=== PATIENT | male | born 1970 | race Caucasian/White ===

== ENCOUNTER 2018-11-21 14:10 | Emergency (ER) | payer BC ==
--- NOTE | 2018-11-21 15:43 | CR ---
EXAMINATION: Right knee HISTORY: Pain COMPARISON: None TECHNIQUE: AP and lateral views FINDINGS: BKA changes are noted. The amputation margins of the fibula and tibia are irregular, however no comparisons are present to evaluate for erosions. There is moderate soft tissue swelling surrounding the tibial and fibular components. There is no fracture or acute osseous abnormality. No suprapatellar joint effusion. IMPRESSION: 1. Moderate soft tissue swelling surrounding the remaining tibia and fibula, status post BKA.
--- NOTE | 2018-11-21 16:21 | EDM.PDOC ---
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 Past medical history: As per history of present illness and as reviewed below otherwise noncontributory. Surgical history: As per history of present illness and as reviewed below otherwise noncontributory. Social history: No reported history of drug or alcohol abuse. Family history: As per history of present illness and as reviewed below otherwise noncontributory. Physical exam: HEENT: Atraumatic, normocephalic, pupils reactive, negative for conjunctival pallor or scleral icterus, mucous membranes moist, throat clear, neck supple, nontender, trachea midline. Lungs: Clear to auscultation, breath sounds equal bilaterally, chest nontender. Heart: S1S2, regular, negative for clicks, rubs, or JVD. Abdomen: Soft, nondistended, nontender. Negative for masses or hepatosplenomegaly. Negative for costovertebral tenderness. Pelvis: Stable nontender. Genitourinary: Deferred. Rectal: Deferred. Extremities: Atraumatic, negative for cords or calf pain. Neurovascular unremarkable. Right lower extremity as per history of present illness Neuro: Awake, alert, oriented. Cranial nerves II through XII unremarkable. Cerebellum unremarkable. Motor and sensory unremarkable throughout. Exam nonfocal. Diagnostics: [Distal right lower extremity x-ray no acute process per radiology ] Therapeutics: Elevation ice ibuprofen Keflex 500 by mouth twice a day #20 no refill Follow-up primary care in 2 weeks] sooner as needed Impression: [Contusion Swelling Lower extremity injury Post BKA remote past] Definitive disposition and diagnosis as appropriate pending reevaluation and review of above. Right Lower Leg Pain Score (Numeric/FACES): 5 - Related Data Allergies Allergy/AdvReac Type Severity Reaction Status Date / Time nickel Allergy Swelling Verified 11/21/18 14:50 metal Allergy Other Uncoded 11/21/18 14:50 Home Meds: Home Meds Lansoprazole [Prevacid] 1 tab PO DAILY 12/21/14 [History] Multivitamin [Multi-Vitamin Daily] 1 tab PO DAILY 12/21/14 [History] amLODIPine [Norvasc] 10 mg PO DAILY 10/13/15 [History] Aspirin 325 mg PO DAILY 07/24/16 [History] Hydrochlorothiazide 25 mg PO DAILY 07/24/16 [History] Losartan [Cozaar] 50 mg PO DAILY 07/24/16 [History] Levothyroxine 1 tab PO DAILY 11/21/18 [History] Past Medical History HEENT History: Reports: Hard of Hearing Cardiovascular History: Reports: Hypertension Respiratory History: Reports: None, Sleep Apnea Gastrointestinal History: Reports: GERD Other Gastrointestinal History: colitis Genitourinary History: Reports: Renal Calculus Musculoskeletal History: Reports: Amputation Other Neuro History: neurofibromatosis Endocrine/Metabolic History: Reports: Obesity/BMI 30+ Hematologic History: Reports: Blood Transfusion(s) Dermatologic History: Reports: Psoriasis - Infectious Disease History Infectious Disease History: Reports: Chicken Pox, Measles - Past Surgical History GI Surgical History: Reports: Appendectomy Male Surgical History: Reports: Kidney Stone Extraction Musculoskeletal Surgical History: Reports: ORIF, Other (See Below) Social & Family History - Family History Family Medical History: Noncontributory HEENT: Reports: None - Tobacco Use Smoking Status *Q: Never Smoker - Caffeine Use Caffeine Use: Reports: Coffee, Soda - Recreational Drug Use Recreational Drug Use: No - Living Situation & Occupation Living situation: Reports: Occupation: Employed Review of Systems - Review of Systems Review Of Systems: See Below ED EXAM, GENERAL - Physical Exam Exam: See Below Course - Vital Signs Last Recorded V/S: Last Vital Signs Temp 96.9 F 11/21/18 14:47 Pulse 100 11/21/18 14:47 Resp 18 11/21/18 14:47 BP 123/83 11/21/18 14:47 Pulse Ox 95 11/21/18 14:47 Departure - Departure Time of Disposition: 16:20 Disposition: Home, Self-Care 01 Condition: Good Clinical Impression: Injury of right lower extremity - Discharge Information Referrals: PCP,Unknown [Primary Care Provider] - Additional Instructions: Elevation ice ibuprofen Keflex 500 by mouth twice a day #20 no refill Follow-up primary care in 2 weeks] sooner as needed The following information is given to patients seen in the emergency department who are being discharged to home. This information is to outline your options for follow-up care. We provide all patients seen in our emergency department with a follow-up referral. The need for follow-up, as well as the timing and circumstances, are variable depending upon the specifics of your emergency department visit. If you don't have a primary care physician on staff, we will provide you with a referral. We always advise you to contact your personal physician following an emergency department visit to inform them of the circumstance of the visit and for follow-up with them and/or the need for any referrals to a consulting specialist. The emergency department will also refer you to a specialist when appropriate. This referral assures that you have the opportunity for follow-up care with a specialist. All of these measure are taken in an effort to provide you with optimal care, which includes your follow-up. Under all circumstances we always encourage you to contact your private physician who remains a resource for coordinating your care. When calling for follow-up care, please make the office aware that this follow-up is from your recent emergency room visit. If for any reason you are refused follow-up, please contact the [facility] emergency department at and asked to speak to the emergency department charge nurse.
[2018-11-21 16:41] VITALS: BP 129/81
== END 2018-11-21 16:41 | disposition home or self-care (01) ==
LOC: MW.ED 14:10
DX: T87.89 Other complications of amputation stump (principal); I10 Essential (primary) hypertension; K21.9 Gastro-esophageal reflux disease without esophagitis; Z91.09 Other allergy status, other than to drugs and biological substances; Z79.82 Long term (current) use of aspirin; Z79.899 Other long term (current) drug therapy; Z89.511 Acquired absence of right leg below knee; Z89.512 Acquired absence of left leg below knee
CPT/HCPCS: 73560-26-RT; 73560-RT; 99283; 99283-25

== ENCOUNTER 2019-08-10 14:19 | Emergency (ER) | payer BC ==
--- NOTE | 2019-08-10 14:55 | EDM.PDOC ---
ED HPI GENERAL MEDICAL PROBLEM - General Chief Complaint: Respiratory Problem Stated Complaint: COLD Time Seen by Provider: 08/10/19 14:51 Source of Information: Reports: Patient History Limitations: Reports: No Limitations - History of Present Illness INITIAL COMMENTS - FREE TEXT/NARRATIVE: HISTORY AND PHYSICAL: History of present illness: Patient is a 49 male who presents to the emergency room with concerns of cough and congestion 1 week. Patient denies any fever, chills, headache, change in vision, syncope or near syncope. Denies any chest pain, back pain, or shortness of breath. Denies any abdominal pain, nausea, vomiting, diarrhea, constipation or dysuria. Has not noted any blood in urine or stool. Patient has been eating and drinking appropriately. Review of systems: As per history of present illness and below otherwise all systems reviewed and negative. Past medical history: As per history of present illness and as reviewed below otherwise noncontributory. Surgical history: As per history of present illness and as reviewed below otherwise noncontributory. Social history: See social history for further information Family history: As per history of present illness and as reviewed below otherwise noncontributory. Physical exam: General: Well-developed and well-nourished 49-year-old male. Alert and oriented. Nontoxic appearing and in no acute distress. HEENT: Atraumatic, normocephalic, pupils equal and reactive bilaterally, negative for conjunctival pallor or scleral icterus, mucous membranes moist, TMs normal bilaterally, throat clear, neck supple, nontender, trachea midline. No drooling or trismus noted. No meningeal signs. No hot potato voice noted. Lungs: Fine expiratory wheezing posterior bases bilat - otherwise clear, breath sounds equal bilaterally, chest nontender. Dry nonproductive cough. Heart: S1S2, regular rate and rhythm without overt murmur Abdomen: Soft, obese, nontender. Skin: Intact, warm, dry. No lesions or rashes noted. Extremities: Atraumatic, moves all extremities per self without difficulty or deficits, negative for cords or calf pain. Neurovascular unremarkable. Neuro: Awake, alert, oriented. Cranial nerves II through XII unremarkable. Cerebellum unremarkable. Motor and sensory unremarkable throughout. Exam nonfocal. Notes: Diagnositics are unremarkable. Due to symptoms and longevity; will treat. Medication and supportive care measures were reviewed and discussed. Voices understanding and is agreeable to plan of care. Denies any further questions or concerns at this time. Diagnostics: Influenza, CXR Therapeutics: Pro-Air with Spacer Prescription: Zpak, Tessalone Jacqueline, Medrol Dosepak Impression: Bronchitis Plan: 1. Take medications as prescribed. Can use the Pro-Air inhaler with spacer 2 puffs every 4 hours PRN. 2. Follow up with your primary care provider as we discussed. 3. Return to the ED as needed as discussed. Definitive disposition and diagnosis as appropriate pending reevaluation and review of above. - Related Data Allergies Allergy/AdvReac Type Severity Reaction Status Date / Time nickel Allergy Swelling Verified 08/10/19 14:29 metal Allergy Other Uncoded 11/21/18 14:50 Home Meds: Home Meds Lansoprazole [Prevacid] 1 tab PO DAILY 12/21/14 [History] Multivitamin [Multi-Vitamin Daily] 1 tab PO DAILY 12/21/14 [History] amLODIPine [Norvasc] 10 mg PO DAILY 10/13/15 [History] Aspirin 325 mg PO DAILY 07/24/16 [History] Hydrochlorothiazide 25 mg PO DAILY 07/24/16 [History] Losartan [Cozaar] 50 mg PO DAILY 07/24/16 [History] Levothyroxine 1 tab PO DAILY 11/21/18 [History] Azithromycin [Zithromax] 1 dose PO DAILY 5 Days #6 tab 08/10/19 [Rx] methylPREDNISolone [Medrol] 1 dose PO DAILY 6 Days #1 dospk 08/10/19 [Rx] Past Medical History HEENT History: Reports: Hard of Hearing Cardiovascular History: Reports: Hypertension Respiratory History: Reports: None, Sleep Apnea Gastrointestinal History: Reports: GERD Other Gastrointestinal History: colitis Genitourinary History: Reports: Renal Calculus Musculoskeletal History: Reports: Amputation Other Neuro History: neurofibromatosis Endocrine/Metabolic History: Reports: Obesity/BMI 30+ Hematologic History: Reports: Blood Transfusion(s) Dermatologic History: Reports: Psoriasis - Infectious Disease History Infectious Disease History: Reports: Chicken Pox - Past Surgical History GI Surgical History: Reports: Appendectomy Male Surgical History: Reports: Kidney Stone Extraction Musculoskeletal Surgical History: Reports: ORIF, Other (See Below) Social & Family History - Family History Family Medical History: Noncontributory HEENT: Reports: None - Tobacco Use Smoking Status *Q: Never Smoker - Caffeine Use Caffeine Use: Reports: Coffee, Soda - Recreational Drug Use Recreational Drug Use: No - Living Situation & Occupation Living situation: Reports: Occupation: Employed ED ROS GENERAL - Review of Systems Review Of Systems: Comprehensive ROS is negative, except as noted in HPI. ED EXAM, GENERAL - Physical Exam Exam: See Below (See edictation) Course - Vital Signs Last Recorded V/S: Last Vital Signs Temp 97.7 F 08/10/19 14:25 Pulse 93 08/10/19 14:25 Resp 18 08/10/19 14:25 BP 146/77 H 08/10/19 14:25 Pulse Ox 95 08/10/19 14:25 - Orders/Labs/Meds Orders: Active Orders 24 hr Category Date Time Status Communication Order [RC] STAT Care 08/10/19 14:59 Active RT Post Treatment Assessment [RC] Click to Edit Care 08/10/19 14:58 Active RT Pre-Treatment Assessment [RC] Click to Edit Care 08/10/19 14:58 Active Meds: Medications Discontinued Medications Generic Name Dose Route Start Last Admin Trade Name Enrico PRN Reason Stop Dose Admin Albuterol 1 gm 08/10/19 14:58 Ventolin Hfa INH 08/10/19 14:59 ONETIME ONE Departure - Departure Time of Disposition: 15:04 Disposition: Home, Self-Care 01 Clinical Impression: Bronchitis - Discharge Information Prescriptions: Azithromycin [Zithromax] 1 dose PO DAILY 5 Days #6 tab methylPREDNISolone [Medrol] 1 dose PO DAILY 6 Days #1 dospk Referrals: Amish Padilla MD [Primary Care Provider] - Forms: ED Department Discharge Additional Instructions: The following information is given to patients seen in the emergency department who are being discharged to home. This information is to outline your options for follow-up care. We provide all patients seen in our emergency department with a follow-up referral. The need for follow-up, as well as the timing and circumstances, are variable depending upon the specifics of your emergency department visit. If you don't have a primary care physician on staff, we will provide you with a referral. We always advise you to contact your personal physician following an emergency department visit to inform them of the circumstance of the visit and for follow-up with them and/or the need for any referrals to a consulting specialist. The emergency department will also refer you to a specialist when appropriate. This referral assures that you have the opportunity for follow-up care with a specialist. All of these measure are taken in an effort to provide you with optimal care, which includes your follow-up. Under all circumstances we always encourage you to contact your private physician who remains a resource for coordinating your care. When calling for follow-up care, please make the office aware that this follow-up is from your recent emergency room visit. If for any reason you are refused follow-up, please contact the [facility] Emergency Department at and asked to speak to the emergency department charge nurse. [facility] [address] [place] [id number] [facility] [address] [place] [id number] 1. Take medications as prescribed. Can use the Pro-Air inhaler with spacer 2 puffs every 4 hours PRN. 2. Follow up with your primary care provider as we discussed. 3. Return to the ED as needed as discussed. Sepsis Event Note - Evaluation Sepsis Screening Result: No Definite Risk - Focused Exam Vital Signs: Vital Signs Temp Pulse Resp BP Pulse Ox 08/10/19 14:25 97.7 F 93 18 146/77 H 95 Date Exam was Performed: 08/10/19 Time Exam was Performed: 15:03 - My Orders Last 24 Hours: My Active Orders 08/10/19 14:58 RT Post Treatment Assessment [RC] Click to Edit RT Pre-Treatment Assessment [RC] Click to Edit 08/10/19 14:59 Communication Order [RC] STAT - Assessment/Plan Last 24 Hours: My Active Orders 08/10/19 14:58 RT Post Treatment Assessment [RC] Click to Edit RT Pre-Treatment Assessment [RC] Click to Edit 08/10/19 14:59 Communication Order [RC] STAT
[2019-08-10] MEDS ORDERED: Albuterol 8 GM Inhaler INH ONE (14:58)
--- NOTE | 2019-08-10 14:58 | CR ---
Chest: 2 views of the chest are obtained. Comparison: Prior chest CT study of 05/12/19, previous chest x-ray of 10/12/15. Heart size and mediastinum are normal. Lungs are clear with no acute parenchymal change. Bony structures appear within normal limits for the patient's age. Impression: 1. Nothing acute is appreciated on 2 view chest x-ray. Diagnostic code #1 This report was dictated in [place] Standard Time
[2019-08-10 15:42] VITALS: BP 137/78; PULSE 88
== END 2019-08-10 15:52 | disposition home or self-care (01) ==
LOC: MW.ED 14:19
DX: J40 Bronchitis, not specified as acute or chronic (principal); Z88.8 Allergy status to other drugs, medicaments and biological substances; Z91.048 Other nonmedicinal substance allergy status
CPT/HCPCS: 71046; 87804; 99284; A9270; 99283

== ENCOUNTER 2019-08-14 17:16 | Observation (INO) | payer BC ==
[2019-08-14] MEDS ORDERED: methylPREDNISolone Sodium Succinate 125 MG/2 ML SDV IVPUSH ONE (17:38)
[2019-08-14] MEDS ORDERED: Albuterol/Ipratropium 3.0-0.5 MG/3 ML Neb Soln NEB ONE (17:38)
[2019-08-14] MEDS ORDERED: Sodium Chloride 0.9% 2.5 ML Syringe FLUSH PRN (17:39)
[2019-08-14] MEDS ORDERED: Sodium Chloride 0.9% 10 ML Syringe FLUSH PRN (17:39)
--- NOTE | 2019-08-14 18:01 | EDM.PDOC ---
ED HPI GENERAL MEDICAL PROBLEM - General Chief Complaint: Respiratory Problem Stated Complaint: COUGH Time Seen by Provider: 08/14/19 17:30 Source of Information: Reports: Patient History Limitations: Reports: No Limitations - History of Present Illness INITIAL COMMENTS - FREE TEXT/NARRATIVE: HISTORY AND PHYSICAL: History of present illness: Patient is a 49-year-old male who presents to the emergency room with complaints of cough and shortness of breath. He was evaluated in our emergency room earlier this week with similar complaints. At that time he had chest x- ray and influenza swab which were negative. He was placed on Z-Gaston, Medrol Dosepak and given Tessalon Perles. He states his symptoms have not improved and he becomes "short of breath just walking down the bone. Patient denies any fever, chills, headache, change in vision, syncope or near syncope. Denies any chest pain, back pain, neck pain or stiffness. Denies any abdominal pain, nausea , vomiting, diarrhea, constipation or dysuria. Has not noted any blood in urine or stool. Patient has been eating and drinking appropriately. Review of systems: As per history of present illness and below otherwise all systems reviewed and negative. Past medical history: As per history of present illness and as reviewed below otherwise noncontributory. Surgical history: As per history of present illness and as reviewed below otherwise noncontributory. Social history: See social history for further information Family history: As per history of present illness and as reviewed below otherwise noncontributory. Physical exam: General: Well-developed and well-nourished 44-year-old male. Alert and oriented. Nontoxic-appearing and in no acute distress. HEENT: Atraumatic, normocephalic, pupils equal and reactive bilaterally, negative for conjunctival pallor or scleral icterus, mucous membranes moist, TMs normal bilaterally, throat clear, neck supple, nontender, trachea midline. No drooling or trismus noted. No meningeal signs. No hot potato voice noted. Lungs: Diminished throughout, breath sounds equal bilaterally, chest nontender. Loose harsh cough noted. Heart: S1S2, regular rate and rhythm without overt murmur Abdomen: Soft, nondistended, nontender. Negative for masses or hepatosplenomegaly. Negative for costovertebral tenderness. Pelvis: Stable nontender. Skin: Intact, warm, dry. No lesions or rashes noted. Extremities: Atraumatic, moves all extremities per self without difficulty or deficits, negative for cords or calf pain. Neurovascular unremarkable. Neuro: Awake, alert, oriented. Cranial nerves II through XII unremarkable. Cerebellum unremarkable. Motor and sensory unremarkable throughout. Exam nonfocal. Notes: Patient does have a leukocytosis. Negative d-dimer. Chest x-ray shows 1.2cm nodule within the left upper chest not definitively appreciated on chest CT that was done in May 2019 (recommend repeat CT). Emphysematous changes noted mild increased lung markings which are believed to be chronic. As the patient did fail outpatient oral antibiotics and nursing staff did walk with him in the hallway and his oxygen saturation was 86 to 88% on room air and he was symptomatic. Did offer him admission for further care and management. Dr. Menard was consulted and agreeable to admit patient for observation Diagnostics: CBC, CMP, BC x 2, CXR Therapeutics: Duo Neb, Solu-Medrol, Levaquin Impression: Hypoxia Leukocytosis Bronchitis Plan: Observation admission Definitive disposition and diagnosis as appropriate pending reevaluation and review of above. - Related Data Allergies Allergy/AdvReac Type Severity Reaction Status Date / Time nickel Allergy Severe Swelling Verified 08/14/19 21:11 metal Allergy Severe Other Uncoded 08/14/19 21:11 Home Meds: Home Meds Lansoprazole [Prevacid] 1 tab PO DAILY 12/21/14 [History] Multivitamin [Multi-Vitamin Daily] 1 tab PO DAILY 12/21/14 [History] amLODIPine [Norvasc] 10 mg PO DAILY 10/13/15 [History] Hydrochlorothiazide 25 mg PO DAILY 07/24/16 [History] Losartan [Cozaar] 50 mg PO DAILY 07/24/16 [History] Azithromycin [Zithromax] 1 dose PO DAILY 5 Days #6 tab 08/10/19 [Rx] Benzonatate [Tessalon Perle] 100 mg PO TID PRN #20 capsule 08/10/19 [Rx] methylPREDNISolone [Medrol] 1 dose PO DAILY 6 Days #1 dospk 08/10/19 [Rx] Aspirin [Halfprin] 81 mg PO DAILY 08/14/19 [History] Escitalopram [Lexapro] 20 mg PO DAILY 08/14/19 [History] Levothyroxine [Synthroid] 50 mcg PO ASDIRECTED 08/14/19 [History] Past Medical History HEENT History: Reports: Hard of Hearing Cardiovascular History: Reports: Hypertension Respiratory History: Reports: None, Sleep Apnea Gastrointestinal History: Reports: GERD Other Gastrointestinal History: colitis Genitourinary History: Reports: Renal Calculus Musculoskeletal History: Reports: Amputation Other Neuro History: neurofibromatosis Endocrine/Metabolic History: Reports: Obesity/BMI 30+ Hematologic History: Reports: Blood Transfusion(s) Dermatologic History: Reports: Psoriasis - Infectious Disease History Infectious Disease History: Reports: Chicken Pox - Past Surgical History GI Surgical History: Reports: Appendectomy Male Surgical History: Reports: Kidney Stone Extraction Musculoskeletal Surgical History: Reports: ORIF, Other (See Below) Social & Family History - Family History Family Medical History: Noncontributory HEENT: Reports: None - Tobacco Use Smoking Status *Q: Never Smoker Second Hand Smoke Exposure: No - Caffeine Use Caffeine Use: Reports: None - Recreational Drug Use Recreational Drug Use: No - Living Situation & Occupation Living situation: Reports: Occupation: Employed ED ROS GENERAL - Review of Systems Review Of Systems: Comprehensive ROS is negative, except as noted in HPI. ED EXAM, GENERAL - Physical Exam Exam: See Below (See dictation) Course - Vital Signs Last Recorded V/S: Last Vital Signs Temp 97.3 F 08/14/19 17:24 Pulse 87 08/14/19 17:24 Resp 18 08/14/19 17:24 BP 134/90 08/14/19 17:24 Pulse Ox 92 L 08/14/19 17:24 - Orders/Labs/Meds Orders: Active Orders 24 hr Category Date Time Status Patient Status [ADT] Stat ADT 08/14/19 19:01 Active Ambulate [RC] PER UNIT ROUTINE Care 08/14/19 19:30 Active Oxygen Therapy [RC] CONTINUOUS Care 08/14/19 19:30 Active Pulse Oximetry [RC] PRN Care 08/14/19 19:30 Active RT Aerosol Therapy [RC] ASDIRECTED Care 08/14/19 17:39 Active RT Aerosol Therapy [RC] ASDIRECTED Care 08/14/19 19:36 Active Vital Signs [RC] Q4H Care 08/14/19 19:30 Active BMP [BASIC METABOLIC PANEL,BMP] [CHEM] AM Lab 08/15/19 05:11 Ordered CBC WITH AUTO DIFF [HEME] AM Lab 08/15/19 05:11 Ordered CULTURE BLOOD [BC] Stat Lab 08/14/19 18:16 Received CULTURE BLOOD [BC] Stat Lab 08/14/19 18:25 Received MAGNESIUM [CHEM] AM Lab 08/15/19 05:11 Ordered PHOSPHORUS [CHEM] AM Lab 08/15/19 05:11 Ordered URINALYSIS W/MICROSCOPIC [UA W/MICROSCOPIC] [URIN] Stat Lab 08/14/19 19:48 Ordered Acetaminophen [Tylenol] Med 08/14/19 19:30 Active 650 mg PO Q4H PRN Albuterol/Ipratropium [DuoNeb 3.0-0.5 MG/3 ML] Med 08/14/19 20:00 Active 3 ml NEB Q4HRRT Levofloxacin/Dextrose 5%-Water [Levaquin in D5W 750 MG/ Med 08/15/19 09:00 Active 150 ML] 750 mg Premix Bag 1 bag IV Q24H Sodium Chloride 0.9% [Normal Saline] 1,000 ml Med 08/14/19 20:00 Active IV ASDIRECTED Sodium Chloride 0.9% [Saline Flush] Med 08/14/19 17:39 Active 10 ml FLUSH ASDIRECTED PRN Sodium Chloride 0.9% [Saline Flush] Med 08/14/19 17:39 Active 2.5 ml FLUSH ASDIRECTED PRN methylPREDNISolone Sod Succ [Solu-MEDROL] Med 08/15/19 09:00 Active 40 mg IVPUSH Q8H Blood Culture x2 Reflex Set [OM.PC] Stat Oth 08/14/19 17:39 Ordered Saline Lock Insert [OM.PC] Stat Oth 08/14/19 17:39 Ordered Medication Orders Acetaminophen (Tylenol) 650 mg PO Q4H PRN PRN Reason: analgesia/fever Albuterol/Ipratropium (Duoneb 3.0-0.5 Mg/3 Ml) 3 ml NEB Q4HRRT DOUGLAS Last Admin: 08/14/19 21:05 Dose: 3 ml Admin: 08/14/19 21:05 Dose: Aspirin (Aspirin) 325 mg PO DAILY DOUGLAS Guaifenesin/Dextromethorphan (Robitussin Dm) 10 ml PO Q6H PRN PRN Reason: Cough Levofloxacin/Dextrose 750 mg/ (Premix) 150 mls @ 100 mls/hr IV Q24H DOUGLAS Sodium Chloride (Normal Saline) 1,000 mls @ 100 mls/hr IV ASDIRECTED DOUGLAS Stop: 08/15/19 05:00 Levothyroxine Sodium (Levothyroxine) 25 mcg PO DAILY DOUGLAS Methylprednisolone Sodium Succinate (Solu-Medrol) 40 mg IVPUSH Q8H DOUGLAS Non-Formulary Medication (Lansoprazole [Prevacid]) 1 tab PO DAILY DOUGLAS Sodium Chloride (Saline Flush) 10 ml FLUSH ASDIRECTED PRN PRN Reason: Keep Vein Open Sodium Chloride (Saline Flush) 2.5 ml FLUSH ASDIRECTED PRN PRN Reason: Keep Vein Open Labs: Laboratory Tests 08/14/19 08/14/19 08/14/19 Range/Units 17:45 17:45 17:45 WBC 15.84 H (4.0-11.0) K/uL RBC 5.70 (4.50-5.90) M/uL Hgb 17.7 H (13.0-17.0) g/dL Hct 49.8 (38.0-50.0) % MCV 87.4 (80.0-98.0) fL MCH 31.1 (27.0-32.0) pg MCHC 35.5 (31.0-37.0) g/dL RDW Std Deviation 44.8 (28.0-62.0) fl RDW Coeff of Violet 14 (11.0-15.0) % Plt Count 221 (150-400) K/uL MPV 10.30 (7.40-12.00) fL Neut % (Auto) 79.8 (48.0-80.0) % Lymph % (Auto) 15.8 L (16.0-40.0) % [place] % (Auto) 3.4 (0.0-15.0) % Eos % (Auto) 0.6 (0.0-7.0) % Baso % (Auto) 0.4 (0.0-1.5) % Neut # (Auto) 12.6 H (1.4-5.7) K/uL Lymph # (Auto) 2.5 H (0.6-2.4) K/uL [place] # (Auto) 0.5 (0.0-0.8) K/uL Eos # (Auto) 0.1 (0.0-0.7) K/uL Baso # (Auto) 0.1 (0.0-0.1) K/uL Nucleated RBC % 0.0 /100WBC Nucleated RBCs # 0 K/uL D-Dimer, Quantitative 0.23 (0.0-0.50) mg/L FEU Lactate (0.20-2.00) mmol/L Sodium 140 (136-148) mmol/L Potassium 3.8 (3.5-5.1) mmol/L Chloride 102 (98-107) mmol/L Carbon Dioxide 24.3 (21.0-32.0) mmol/L BUN 29 H (7.0-18.0) mg/dL Creatinine 1.0 (0.8-1.3) mg/dL Est Cr Clr Drug Dosing 84.46 mL/min Estimated GFR (MDRD) > 60.0 ml/min Glucose 125 H (74-106) mg/dL Calcium 8.9 (8.5-10.1) mg/dL Total Bilirubin 0.4 (0.2-1.0) mg/dL AST 23 (15-37) IU/L ALT 59 (14-63) IU/L Alkaline Phosphatase 60 (46-116) U/L Troponin I (0.000-0.056) ng/mL Total Protein 7.3 (6.4-8.2) g/dL Albumin 3.9 (3.4-5.0) g/dL Globulin 3.4 (2.6-4.0) g/dL Albumin/Globulin Ratio 1.1 (0.9-1.6) 08/14/19 08/14/19 Range/Units 18:25 19:56 WBC (4.0-11.0) K/uL RBC (4.50-5.90) M/uL Hgb (13.0-17.0) g/dL Hct (38.0-50.0) % MCV (80.0-98.0) fL MCH (27.0-32.0) pg MCHC (31.0-37.0) g/dL RDW Std Deviation (28.0-62.0) fl RDW Coeff of Violet (11.0-15.0) % Plt Count (150-400) K/uL MPV (7.40-12.00) fL Neut % (Auto) (48.0-80.0) % Lymph % (Auto) (16.0-40.0) % [place] % (Auto) (0.0-15.0) % Eos % (Auto) (0.0-7.0) % Baso % (Auto) (0.0-1.5) % Neut # (Auto) (1.4-5.7) K/uL Lymph # (Auto) (0.6-2.4) K/uL [place] # (Auto) (0.0-0.8) K/uL Eos # (Auto) (0.0-0.7) K/uL Baso # (Auto) (0.0-0.1) K/uL Nucleated RBC % /100WBC Nucleated RBCs # K/uL D-Dimer, Quantitative (0.0-0.50) mg/L FEU Lactate 2.0 (0.20-2.00) mmol/L Sodium (136-148) mmol/L Potassium (3.5-5.1) mmol/L Chloride (98-107) mmol/L Carbon Dioxide (21.0-32.0) mmol/L BUN (7.0-18.0) mg/dL Creatinine (0.8-1.3) mg/dL Est Cr Clr Drug Dosing mL/min Estimated GFR (MDRD) ml/min Glucose (74-106) mg/dL Calcium (8.5-10.1) mg/dL Total Bilirubin (0.2-1.0) mg/dL AST (15-37) IU/L ALT (14-63) IU/L Alkaline Phosphatase (46-116) U/L Troponin I < 0.050 (0.000-0.056) ng/mL Total Protein (6.4-8.2) g/dL Albumin (3.4-5.0) g/dL Globulin (2.6-4.0) g/dL Albumin/Globulin Ratio (0.9-1.6) Meds: Medications Generic Name Dose Route Start Last Admin Trade Name Freq PRN Reason Stop Dose Admin Acetaminophen 650 mg 08/14/19 19:30 Tylenol PO Q4H PRN analgesia/fever Albuterol/Ipratropium 3 ml 08/14/19 20:00 08/14/19 21:05 Duoneb 3.0-0.5 Mg/3 Ml NEB 3 ml Q4HRRT DOUGLAS Administration Aspirin 325 mg 08/15/19 09:00 Aspirin PO DAILY DOUGLAS Guaifenesin/Dextromethorphan 10 ml 08/14/19 19:58 Robitussin Dm PO Q6H PRN Cough Levofloxacin/Dextrose 750 mg/ 150 mls @ 100 mls/hr 08/15/19 09:00 Premix IV Q24H DOUGLAS Sodium Chloride 1,000 mls @ 100 mls/hr 08/14/19 20:00 Normal Saline IV 08/15/19 05:00 ASDIRECTED [facility] Levothyroxine Sodium 25 mcg 08/15/19 09:00 Levothyroxine PO DAILY [facility] Methylprednisolone Sodium Succinate 40 mg 08/15/19 09:00 Solu-Medrol IVPUSH Q8H [facility] Non-Formulary Medication 1 tab 08/15/19 09:00 Lansoprazole [Prevacid] PO DAILY [facility] Sodium Chloride 10 ml 08/14/19 17:39 Saline Flush FLUSH ASDIRECTED PRN Keep Vein Open Sodium Chloride 2.5 ml 08/14/19 17:39 Saline Flush FLUSH ASDIRECTED PRN Keep Vein Open Discontinued Medications Generic Name Dose Route Start Last Admin Trade Name Freq PRN Reason Stop Dose Admin Albuterol/Ipratropium 3 ml 08/14/19 17:38 08/14/19 17:49 Duoneb 3.0-0.5 Mg/3 Ml NEB 08/14/19 17:39 3 ml ONETIME ONE Administration Albuterol/Ipratropium 3 ml 08/14/19 19:36 Duoneb 3.0-0.5 Mg/3 Ml NEB Q4HRRT PRN Shortness of Breath Levofloxacin/Dextrose 750 mg/ 150 mls @ 100 mls/hr 08/14/19 19:01 08/14/19 20 :03 Premix IV 08/14/19 20:30 100 mls/hr ONETIME ONE Administration Methylprednisolone Sodium Succinate 125 mg 08/14/19 17:38 08/14/19 17:53 Solu-Medrol IVPUSH 08/14/19 17:39 125 mg ONETIME ONE Administration Departure - Departure Time of Disposition: 19:05 Disposition: Refer to Observation Clinical Impression: Hypoxia, Bronchitis Leukocytosis Qualifiers: Leukocytosis type: unspecified Qualified Code(s): D72.829 - Elevated white blood cell count, unspecified - Discharge Information Sepsis Event Note - Evaluation Sepsis Screening Result: No Definite Risk - Focused Exam Vital Signs: Vital Signs Temp Pulse Resp BP Pulse Ox 08/14/19 17:24 97.3 F 87 18 134/90 92 L Date Exam was Performed: 08/14/19 Time Exam was Performed: 21:26 - My Orders Last 24 Hours: My Active Orders 08/14/19 17:39 RT Aerosol Therapy [RC] ASDIRECTED Sodium Chloride 0.9% [Saline Flush] 10 ml FLUSH ASDIRECTED PRN Sodium Chloride 0.9% [Saline Flush] 2.5 ml FLUSH ASDIRECTED PRN Blood Culture x2 Reflex Set [OM.PC] Stat Saline Lock Insert [OM.PC] Stat 08/14/19 18:16 CULTURE BLOOD [BC] Stat 08/14/19 18:25 CULTURE BLOOD [BC] Stat 08/14/19 19:01 Patient Status [ADT] Stat - Assessment/Plan Last 24 Hours: My Active Orders 08/14/19 17:39 RT Aerosol Therapy [RC] ASDIRECTED Sodium Chloride 0.9% [Saline Flush] 10 ml FLUSH ASDIRECTED PRN Sodium Chloride 0.9% [Saline Flush] 2.5 ml FLUSH ASDIRECTED PRN Blood Culture x2 Reflex Set [OM.PC] Stat Saline Lock Insert [OM.PC] Stat 08/14/19 18:16 CULTURE BLOOD [BC] Stat 08/14/19 18:25 CULTURE BLOOD [BC] Stat 08/14/19 19:01 Patient Status [ADT] Stat
[2019-08-14 18:28] LABS: BLOOD UREA NITROGEN,BUN 29 mg/dL (7.0-18.0); CARBON DIOXIDE,CO2 24.3 mmol/L (21.0-32.0); CHLORIDE,CL 102 mmol/L (98-107); GLUCOSE RANDOM 125 mg/dL (74-106); POTASSIUM,K 3.8 mmol/L (3.5-5.1); SODIUM,NA 140 mmol/L (136-148)
--- NOTE | 2019-08-14 18:30 | CR ---
Chest: 2 views of the chest were obtained. Comparison: Prior chest x-ray 08/10/[address] study of 05/12/19. Heart size and mediastinum are within normal limits. Surgical clips are noted within the right axillary region. Nodule is identified on the current study within the left upper chest measuring 1.2 cm. This finding is not definitely appreciated on chest CT study of 05/12/19. Lungs otherwise are clear with no acute parenchymal change. Lung markings are slightly increased which are believed to be chronic. Diaphragms are flattened on the lateral view compatible with emphysematous change. Mild disc space narrowing is scattered within the spine. Impression: 1. 1.2 cm nodule within the left upper chest not definitely appreciated on chest CT of 05/12/19. Recommend repeat noncontrast chest CT study to further evaluate. 2. Emphysematous change. 3. Mild increased lung markings which are believed to be chronic. Nothing acute is otherwise seen. Diagnostic code #9 This report was dictated in [place] Standard Time
[2019-08-14] MEDS ORDERED: Levofloxacin/Dextrose 5%-Water 750 MG in Premix Bag 1 BAG IV ONE (19:01)
[2019-08-14] MEDS ORDERED: Acetaminophen 325 MG Tab PO PRN (19:30)
[2019-08-14] MEDS ORDERED: Albuterol/Ipratropium 3.0-0.5 MG/3 ML Neb Soln NEB PRN ×2 (19:36→23:52)
--- NOTE | 2019-08-14 19:40 | CT ---
CT chest Technique: Multiple axial sections were obtained from above the lung apices inferiorly through the lung bases. Intravenous contrast was not utilized. Comparison: Previous chest x-ray performed on the same day (6:02 PM). Prior chest CT study of 05/12/19 is also available. Findings: Visualized upper abdominal structures show nothing acute. No pericardial thickening is seen. Aorta shows no aneurysm. Small lymph nodes are seen within the mediastinum believed to be normal. No axillary adenopathy is seen. Lymph node within the right axillary region appears calcified. Calcification is seen within the thyroid gland which is believed to be incidental. Lungs show no acute parenchymal change. No parenchymal nodule is seen. Skin lesions are seen one of which likely correlate to the nodule on chest x-ray. Bone window settings shows no acute osseous finding. Impression: 1. No pulmonary nodule is seen. No acute parenchymal change is appreciated. 2. Multiple skin lesions are noted. One of these skin lesions likely causes the nodule on the chest x-ray. 3. Other findings which are believed to be incidental as described above. Diagnostic code #2 This report was dictated in [place] Standard Time
[2019-08-14] MEDS ORDERED: guaiFENesin/Dextromethorphan 100-10 MG/5 ML Soln 10 ML Cup PO PRN (19:58)
[2019-08-14] MEDS ORDERED: Sodium Chloride 0.9% 1,000 ML IV SCH (20:00)
[2019-08-14] MEDS: Albuterol/Ipratropium 3.0-0.5 MG/3 ML Neb Soln NEB SCH ×2 (21:05)
--- NOTE | 2019-08-14 21:12 | PCM.HP.2 ---
H&P History of Present Illness - General Date of Service: 08/14/19 Admit Problem/Dx: Admission Diagnosis/Problem Admission Diagnosis/Problem Hypoxia Source of Information: Patient - History of Present Illness Initial Comments - Free Text/Narative: Patient is a 49-year-old male with PMH of HTN, sleep apnea, right BKA, who presents to the emergency room with complaints of cough and shortness of breath for past 1 week. Patient was evaluated in emergency room earlier this week with similar complaints. Chest x-ray and influenza swab during that visit were negative. Patient was discharged on Z-Gaston, steroids and Tessalon Perles. Patient states that his SOB is worse with exertion. Patient denies any fever, chills, headache, change in vision, syncope or near syncope, chest pain, neck pain or stiffness. Denies any abdominal pain, nausea, vomiting, diarrhea, constipation or dysuria, hematuria. In the ER patient was hypoxic in high 80s upon ambulation. CXR was obtained which showed a emphysematous changes and pulmonary nodule, subsequent CT showed no nodule, PE or consolidation. Patient was admitted for management of possible COPD/Bronchitis management. Patienr denied any smoking history. Onset of Symptoms: Reports: Gradual Duration of Symptoms: Reports: Day(s): - Related Data Allergies/Adverse Reactions: Allergies Allergy/AdvReac Type Severity Reaction Status Date / Time nickel Allergy Severe Swelling Verified 08/14/19 21:11 metal Allergy Severe Other Uncoded 08/14/19 21:11 Home Medications: Home Meds Lansoprazole [Prevacid] 1 tab PO DAILY 12/21/14 [History] Multivitamin [Multi-Vitamin Daily] 1 tab PO DAILY 12/21/14 [History] amLODIPine [Norvasc] 10 mg PO DAILY 10/13/15 [History] Hydrochlorothiazide 25 mg PO DAILY 07/24/16 [History] Losartan [Cozaar] 50 mg PO DAILY 07/24/16 [History] Azithromycin [Zithromax] 1 dose PO DAILY 5 Days #6 tab 08/10/19 [Rx] methylPREDNISolone [Medrol] 1 dose PO DAILY 6 Days #1 dospk 08/10/19 [Rx] Aspirin [Halfprin] 81 mg PO DAILY 08/14/19 [History] Escitalopram [Lexapro] 20 mg PO DAILY 08/14/19 [History] Levothyroxine [Synthroid] 50 mcg PO ASDIRECTED 08/14/19 [History] Past Medical History HEENT History: Reports: Hard of Hearing Cardiovascular History: Reports: Hypertension Respiratory History: Reports: None, Sleep Apnea Gastrointestinal History: Reports: GERD Other Gastrointestinal History: colitis Genitourinary History: Reports: Renal Calculus Musculoskeletal History: Reports: Amputation Other Neuro History: neurofibromatosis Endocrine/Metabolic History: Reports: Obesity/BMI 30+ Hematologic History: Reports: Blood Transfusion(s) Dermatologic History: Reports: Psoriasis - Infectious Disease History Infectious Disease History: Reports: Chicken Pox - Past Surgical History GI Surgical History: Reports: Appendectomy Male Surgical History: Reports: Kidney Stone Extraction Musculoskeletal Surgical History: Reports: ORIF, Other (See Below) Social & Family History - Family History Family Medical History: Noncontributory HEENT: Reports: None - Tobacco Use Smoking Status *Q: Never Smoker Second Hand Smoke Exposure: No - Caffeine Use Caffeine Use: Reports: None - Recreational Drug Use Recreational Drug Use: No - Living Situation & Occupation Living situation: Reports: Occupation: Employed H&P Review of Systems - Review of Systems: General: Reports: Malaise, Weakness, Fatigue, Decreased Appetite HEENT: Reports: Sore Throat. Denies: Glasses, Headaches, Hearing Changes, Vertigo Pulmonary: Reports: Shortness of Breath, Cough, Sputum. Denies: Pleuritic Chest Pain, Hemoptysis Cardiovascular: Reports: Dyspnea on Exertion. Denies: Chest Pain, Palpitations , Orthopnea, Edema, Lightheadedness Gastrointestinal: Denies: Abdominal Pain, Anorexia, Black Stool, Bloody Stool, Vomiting Genitourinary: Denies: Burning, Pain, Urgency Musculoskeletal: Denies: Shoulder Pain, Arm Pain, Back Pain Skin: Denies: Jaundice, Pallor, Diaphoresis Psychiatric: Denies: Confusion, Depression, Mood Lability Neurological: Denies: Confusion, Dizziness, Numbness, Paresthesia, Pre-Existing Deficit, Seizure Hematologic/Lymphatic: Denies: Easy Bleeding, Easy Bruising, Swollen Glands Exam - Vital Signs Vital Signs: Last Vital Signs Temp 36.3 C 08/14/19 17:24 Pulse 87 08/14/19 17:24 Resp 18 08/14/19 17:24 BP 134/90 08/14/19 17:24 Pulse Ox 92 L 08/14/19 17:24 Weight: 113.398 kg - Exam General: Alert, Oriented, Cooperative, Moderate Distress HEENT: Conjunctiva Clear Neck: Trachea Midline. No: Supple Lungs: Decreased Breath Sounds, Rhonchi Cardiovascular: Normal S1, Normal S2 GI/Abdominal Exam: Normal Bowel Sounds, Soft, Non-Tender Peripheral Pulses: 3+: Dorsalis Pedis (L), Dorsalis Pedis (R) Skin: Dry Psychiatric: Alert, Normal Affect, Normal Mood - Patient Data Lab Results Last 24 hrs: Laboratory Results - last 24 hr 08/14/19 08/14/19 08/14/19 Range/Units 17:45 17:45 17:45 WBC 15.84 H (4.0-11.0) K/uL RBC 5.70 (4.50-5.90) M/uL Hgb 17.7 H (13.0-17.0) g/dL Hct 49.8 (38.0-50.0) % MCV 87.4 (80.0-98.0) fL MCH 31.1 (27.0-32.0) pg MCHC 35.5 (31.0-37.0) g/dL RDW Std Deviation 44.8 (28.0-62.0) fl RDW Coeff of Violet 14 (11.0-15.0) % Plt Count 221 (150-400) K/uL MPV 10.30 (7.40-12.00) fL Neut % (Auto) 79.8 (48.0-80.0) % Lymph % (Auto) 15.8 L (16.0-40.0) % [place] % (Auto) 3.4 (0.0-15.0) % Eos % (Auto) 0.6 (0.0-7.0) % Baso % (Auto) 0.4 (0.0-1.5) % Neut # (Auto) 12.6 H (1.4-5.7) K/uL Lymph # (Auto) 2.5 H (0.6-2.4) K/uL [place] # (Auto) 0.5 (0.0-0.8) K/uL Eos # (Auto) 0.1 (0.0-0.7) K/uL Baso # (Auto) 0.1 (0.0-0.1) K/uL Nucleated RBC % 0.0 /100WBC Nucleated RBCs # 0 K/uL D-Dimer, Quantitative 0.23 (0.0-0.50) mg/L FEU Lactate (0.20-2.00) mmol/L Sodium 140 (136-148) mmol/L Potassium 3.8 (3.5-5.1) mmol/L Chloride 102 (98-107) mmol/L Carbon Dioxide 24.3 (21.0-32.0) mmol/L BUN 29 H (7.0-18.0) mg/dL Creatinine 1.0 (0.8-1.3) mg/dL Est Cr Clr Drug Dosing 84.46 mL/min Estimated GFR (MDRD) > 60.0 ml/min Glucose 125 H (74-106) mg/dL Calcium 8.9 (8.5-10.1) mg/dL Total Bilirubin 0.4 (0.2-1.0) mg/dL AST 23 (15-37) IU/L ALT 59 (14-63) IU/L Alkaline Phosphatase 60 (46-116) U/L Troponin I (0.000-0.056) ng/mL Total Protein 7.3 (6.4-8.2) g/dL Albumin 3.9 (3.4-5.0) g/dL Globulin 3.4 (2.6-4.0) g/dL Albumin/Globulin Ratio 1.1 (0.9-1.6) 08/14/19 08/14/19 Range/Units 18:25 19:56 WBC (4.0-11.0) K/uL RBC (4.50-5.90) M/uL Hgb (13.0-17.0) g/dL Hct (38.0-50.0) % MCV (80.0-98.0) fL MCH (27.0-32.0) pg MCHC (31.0-37.0) g/dL RDW Std Deviation (28.0-62.0) fl RDW Coeff of Violet (11.0-15.0) % Plt Count (150-400) K/uL MPV (7.40-12.00) fL Neut % (Auto) (48.0-80.0) % Lymph % (Auto) (16.0-40.0) % [place] % (Auto) (0.0-15.0) % Eos % (Auto) (0.0-7.0) % Baso % (Auto) (0.0-1.5) % Neut # (Auto) (1.4-5.7) K/uL Lymph # (Auto) (0.6-2.4) K/uL [place] # (Auto) (0.0-0.8) K/uL Eos # (Auto) (0.0-0.7) K/uL Baso # (Auto) (0.0-0.1) K/uL Nucleated RBC % /100WBC Nucleated RBCs # K/uL D-Dimer, Quantitative (0.0-0.50) mg/L FEU Lactate 2.0 (0.20-2.00) mmol/L Sodium (136-148) mmol/L Potassium (3.5-5.1) mmol/L Chloride (98-107) mmol/L Carbon Dioxide (21.0-32.0) mmol/L BUN (7.0-18.0) mg/dL Creatinine (0.8-1.3) mg/dL Est Cr Clr Drug Dosing mL/min Estimated GFR (MDRD) ml/min Glucose (74-106) mg/dL Calcium (8.5-10.1) mg/dL Total Bilirubin (0.2-1.0) mg/dL AST (15-37) IU/L ALT (14-63) IU/L Alkaline Phosphatase (46-116) U/L Troponin I < 0.050 (0.000-0.056) ng/mL Total Protein (6.4-8.2) g/dL Albumin (3.4-5.0) g/dL Globulin (2.6-4.0) g/dL Albumin/Globulin Ratio (0.9-1.6) Result Diagrams: 08/14/19 17:45 08/14/19 17:45 Sepsis Event Note - Evaluation Sepsis Screening Result: No Definite Risk - Focused Exam Vital Signs: Vital Signs Temp Pulse Resp BP Pulse Ox 08/14/19 17:24 36.3 C 87 18 134/90 92 L Date Exam was Performed: 08/14/19 Time Exam was Performed: 23:53 - Problem List (1) Bronchitis SNOMED Code(s): 90044835 ICD Code: J40 - BRONCHITIS, NOT SPECIFIED ACUTE OR CHRONIC Status: Acute Current Visit: Yes (2) Hypoxia SNOMED Code(s): 529344761 ICD Code: R09.02 - HYPOXEMIA Status: Acute Current Visit: Yes (3) Leukocytosis SNOMED Code(s): 049629257, 164307605 ICD Code: D72.829 - ELEVATED WHITE BLOOD CELL COUNT, UNSPECIFIED Status: Acute Current Visit: Yes Qualifiers: Leukocytosis type: unspecified Qualified Code(s): D72.829 - Elevated white blood cell count, unspecified Problem List Initiated/Reviewed/Updated: Yes Orders Last 24hrs: Active Orders 24 hr Category Date Time Status Patient Status [ADT] Stat ADT 08/14/19 19:01 Active Ambulate [RC] PER UNIT ROUTINE Care 08/14/19 19:30 Active Oxygen Therapy [RC] CONTINUOUS Care 08/14/19 19:30 Active Pulse Oximetry [RC] PRN Care 08/14/19 19:30 Active RT Aerosol Therapy [RC] ASDIRECTED Care 08/14/19 17:39 Active RT Aerosol Therapy [RC] ASDIRECTED Care 08/14/19 19:36 Active Vital Signs [RC] Q4H Care 08/14/19 19:30 Active BMP [BASIC METABOLIC PANEL,BMP] [CHEM] AM Lab 08/15/19 05:11 Ordered CBC WITH AUTO DIFF [HEME] AM Lab 08/15/19 05:11 Ordered CULTURE BLOOD [BC] Stat Lab 08/14/19 18:16 Received CULTURE BLOOD [BC] Stat Lab 08/14/19 18:25 Received MAGNESIUM [CHEM] AM Lab 08/15/19 05:11 Ordered PHOSPHORUS [CHEM] AM Lab 08/15/19 05:11 Ordered URINALYSIS W/MICROSCOPIC [UA W/MICROSCOPIC] [URIN] Stat Lab 08/14/19 19:48 Ordered Acetaminophen [Tylenol] Med 08/14/19 19:30 Active 650 mg PO Q4H PRN Albuterol/Ipratropium [DuoNeb 3.0-0.5 MG/3 ML] Med 08/14/19 20:00 Active 3 ml NEB Q4HRRT Aspirin Med 08/15/19 09:00 Active 325 mg PO DAILY Dextromethorphan/guaiFENesin [Robitussin DM] Med 08/14/19 19:58 Active 10 ml PO Q6H PRN Lansoprazole [Prevacid] Med 08/15/19 09:00 Active 1 tab PO DAILY Levofloxacin/Dextrose 5%-Water [Levaquin in D5W 750 MG/ Med 08/15/19 09:00 Active 150 ML] 750 mg Premix Bag 1 bag IV Q24H Levothyroxine Med 08/15/19 09:00 Active 25 mcg PO DAILY Sodium Chloride 0.9% [Normal Saline] 1,000 ml Med 08/14/19 20:00 Active IV ASDIRECTED Sodium Chloride 0.9% [Saline Flush] Med 08/14/19 17:39 Active 10 ml FLUSH ASDIRECTED PRN Sodium Chloride 0.9% [Saline Flush] Med 08/14/19 17:39 Active 2.5 ml FLUSH ASDIRECTED PRN methylPREDNISolone Sod Succ [Solu-MEDROL] Med 08/15/19 09:00 Active 40 mg IVPUSH Q8H Blood Culture x2 Reflex Set [OM.PC] Stat Oth 08/14/19 17:39 Ordered Saline Lock Insert [OM.PC] Stat Oth 08/14/19 17:39 Ordered Medication Orders Acetaminophen (Tylenol) 650 mg PO Q4H PRN PRN Reason: analgesia/fever Albuterol/Ipratropium (Duoneb 3.0-0.5 Mg/3 Ml) 3 ml NEB Q4HRRT [facility] Last Admin: 08/14/19 21:05 Dose: 3 ml Admin: 08/14/19 21:05 Dose: Aspirin (Aspirin) 325 mg PO DAILY [facility] Guaifenesin/Dextromethorphan (Robitussin Dm) 10 ml PO Q6H PRN PRN Reason: Cough Levofloxacin/Dextrose 750 mg/ (Premix) 150 mls @ 100 mls/hr IV Q24H [facility] Sodium Chloride (Normal Saline) 1,000 mls @ 100 mls/hr IV ASDIRECTED [facility] Stop: 08/15/19 05:00 Levothyroxine Sodium (Levothyroxine) 25 mcg PO DAILY [facility] Methylprednisolone Sodium Succinate (Solu-Medrol) 40 mg IVPUSH Q8H [facility] Non-Formulary Medication (Lansoprazole [Prevacid]) 1 tab PO DAILY [facility] Sodium Chloride (Saline Flush) 10 ml FLUSH ASDIRECTED PRN PRN Reason: Keep Vein Open Sodium Chloride (Saline Flush) 2.5 ml FLUSH ASDIRECTED PRN PRN Reason: Keep Vein Open Assessment/Plan Comment:: A/P: Patient is 49 y/o M comes in for evaluation of SOB CT chest ruled out PE, PNA Troponin negative, EKG unremarkable Admitted for possible COPD exacerbation / Bronchitis cont IV Levaquin for now Start DuoNeb start IV steroids Start slow hydration with NS Resume home meds as appropriate for HTN
[2019-08-15 06:31] LABS: CARBON DIOXIDE,CO2 23.4 mmol/L (21.0-32.0); CHLORIDE,CL 104 mmol/L (98-107); GLUCOSE RANDOM 136 mg/dL (74-106); POTASSIUM,K 4.3 mmol/L (3.5-5.1); SODIUM,NA 139 mmol/L (136-148)
[2019-08-15 06:54] LABS: BLOOD UREA NITROGEN,BUN 29 mg/dL (7.0-18.0)
[2019-08-15] MEDS ORDERED: Omeprazole 20 MG Cap.CR PO SCH (07:45)
[2019-08-15] MEDS ORDERED: Levothyroxine 25 MCG Tab PO SCH (07:45)
[2019-08-15] MEDS ORDERED: Aspirin 325 MG Tab.EC PO SCH (09:00)
[2019-08-15] MEDS ORDERED: FLU Vacc QS2019-20(6MOS+)/PF 60 MCG/0.5 ML SYRINGE IM ONE (09:00)
[2019-08-15] MEDS ORDERED: methylPREDNISolone Sodium Succinate 40 MG/1 ML SDV IVPUSH SCH (09:00)
[2019-08-15] MEDS ORDERED: Levofloxacin/Dextrose 5%-Water 750 MG in Premix Bag 1 BAG IV SCH (09:00)
[2019-08-15] MEDS ORDERED: Losartan 50 MG Tab PO SCH (11:00)
[2019-08-15] MEDS ORDERED: Aspirin 81 MG Tab.EC PO SCH (11:00)
[2019-08-15] MEDS ORDERED: amLODIPine 5 MG Tab PO SCH (11:00)
[2019-08-15] MEDS ORDERED: Levothyroxine 50 MCG Tab PO SCH (11:00)
[2019-08-15] MEDS ORDERED: Escitalopram 10 MG Tab PO SCH (11:00)
--- NOTE | 2019-08-15 12:02 | PCM.DCSUM1 ---
Discharge Summary - Hospital Course Free Text/Narrative:: Discharge summary Consultations: None Procedures: None Hospital course: Patient is a 49-year-old male with a significant past medical history of hypertension, sleep apnea, right BKA and neurofibromatosis presented with cough and shortness of breath beginning 7 days prior. Chest x-ray and influenza swab are negative. Patient was having increasing shortness of breath with exertion. Patient had recently presented to the ED a couple days prior and was given Z- Gaston steroids and Tessalon Perles; mentions did not help. Patient was managed with Levaquin duo nebs and IV steroids inpatient. Troponin was negative. EKG was negative CT chest rule out pneumonia and PE. Following day was recommended that patient have outpatient PFTs; prescription was written. Concerns about dyspnea on exertion; stress test was also ordered in outpatient setting. Patient was stable. Concnerns about asthma discussed w. patient. Advised to follow-up in outpatient setting with primary care. Discharge condition:Stable Disposition: Home Follow-up: PCP - Discharge Data Discharge Date: 08/15/19 Discharge Disposition: Home, Self-Care 01 Condition: Good - Referral to Home Health Primary Care Physician: Amish Padilla MD - Patient Instructions Diet: Heart Healthy Diet Notify Provider of: Fever, Increased Pain - Discharge Plan Prescriptions/Med Rec: Albuterol/Ipratropium [Combivent Respimat] 4 gm IH Q4H 14 Days #1 aer.w.adap Levofloxacin [Levaquin] 750 mg PO DAILY 5 Days #5 tablet Home Medications: Home Meds Lansoprazole [Prevacid] 1 tab PO DAILY 12/21/14 [History] Multivitamin [Multi-Vitamin Daily] 1 tab PO DAILY 12/21/14 [History] amLODIPine [Norvasc] 10 mg PO DAILY 10/13/15 [History] Hydrochlorothiazide 25 mg PO DAILY 07/24/16 [History] Losartan [Cozaar] 50 mg PO DAILY 07/24/16 [History] methylPREDNISolone [Medrol Dose Pack] 1 dose PO DAILY 6 Days #1 dospk 08/10/19 [ Rx] Aspirin [Halfprin] 81 mg PO DAILY 08/14/19 [History] Escitalopram [Lexapro] 20 mg PO DAILY 08/14/19 [History] Levothyroxine [Synthroid] 50 mcg PO ASDIRECTED 08/14/19 [History] Albuterol/Ipratropium [Combivent Respimat] 4 gm IH Q4H 14 Days #1 aer.w.adap 02/25 [Rx] Levofloxacin [Levaquin] 750 mg PO DAILY 5 Days #5 tablet 08/15/19 [Rx] Patient Handouts: Hypoxia, Albuterol; Ipratropium respiratory inhalation spray (Combivent Respimat), Leukocytosis, Levofloxacin tablets Referrals: Amish Padilla MD [Primary Care Provider] - 08/30/19 10:30 am Nelson Damon MD [Consulting Physician] - (The pulmonology clinic will call you with your appointment.) - Discharge Summary/Plan Comment DC Time >30 min.: No - Patient Data Vitals - Most Recent: Last Vital Signs Temp 97.2 F 08/15/19 04:00 Pulse 76 08/15/19 04:00 Resp 20 08/15/19 04:00 BP 134/71 08/15/19 04:00 Pulse Ox 94 L 08/15/19 04:00 Weight - Most Recent: 250 lb I&O - Last 24 hours: Intake & Output 08/14/19 08/15/19 08/15/19 22:59 06:59 14:59 Intake Total 1746 Output Total 350 Balance 1396 Lab Results - Last 24 hrs: Laboratory Results - last 24 hr 08/14/19 08/14/19 08/14/19 Range/Units 17:45 17:45 17:45 WBC 15.84 H (4.0-11.0) K/uL RBC 5.70 (4.50-5.90) M/uL Hgb 17.7 H (13.0-17.0) g/dL Hct 49.8 (38.0-50.0) % MCV 87.4 (80.0-98.0) fL MCH 31.1 (27.0-32.0) pg MCHC 35.5 (31.0-37.0) g/dL RDW Std Deviation 44.8 (28.0-62.0) fl RDW Coeff of Violet 14 (11.0-15.0) % Plt Count 221 (150-400) K/uL MPV 10.30 (7.40-12.00) fL Neut % (Auto) 79.8 (48.0-80.0) % Lymph % (Auto) 15.8 L (16.0-40.0) % [place] % (Auto) 3.4 (0.0-15.0) % Eos % (Auto) 0.6 (0.0-7.0) % Baso % (Auto) 0.4 (0.0-1.5) % Neut # (Auto) 12.6 H (1.4-5.7) K/uL Lymph # (Auto) 2.5 H (0.6-2.4) K/uL [place] # (Auto) 0.5 (0.0-0.8) K/uL Eos # (Auto) 0.1 (0.0-0.7) K/uL Baso # (Auto) 0.1 (0.0-0.1) K/uL Nucleated RBC % 0.0 /100WBC Nucleated RBCs # 0 K/uL D-Dimer, Quantitative 0.23 (0.0-0.50) mg/L FEU Lactate (0.20-2.00) mmol/L Sodium 140 (136-148) mmol/L Potassium 3.8 (3.5-5.1) mmol/L Chloride 102 (98-107) mmol/L Carbon Dioxide 24.3 (21.0-32.0) mmol/L BUN 29 H (7.0-18.0) mg/dL Creatinine 1.0 (0.8-1.3) mg/dL Est Cr Clr Drug Dosing 84.46 mL/min Estimated GFR (MDRD) > 60.0 ml/min Glucose 125 H (74-106) mg/dL Calcium 8.9 (8.5-10.1) mg/dL Phosphorus (2.6-4.7) mg/dL Magnesium (1.8-2.4) mg/dL Total Bilirubin 0.4 (0.2-1.0) mg/dL AST 23 (15-37) IU/L ALT 59 (14-63) IU/L Alkaline Phosphatase 60 (46-116) U/L Troponin I (0.000-0.056) ng/mL Total Protein 7.3 (6.4-8.2) g/dL Albumin 3.9 (3.4-5.0) g/dL Globulin 3.4 (2.6-4.0) g/dL Albumin/Globulin Ratio 1.1 (0.9-1.6) Urine Color Urine Appearance Urine pH (5.0-8.0) Ur Specific [place] (1.001-1.035) Urine Protein (NEGATIVE) mg/dL Urine Glucose (UA) (NEGATIVE) mg/dL Urine Ketones (NEGATIVE) mg/dL Urine Occult Blood (NEGATIVE) Urine Nitrite (NEGATIVE) Urine Bilirubin (NEGATIVE) Urine Urobilinogen (<2.0) EU/dL Ur Leukocyte Esterase (NEGATIVE) Urine RBC (0-2/HPF) Urine WBC (0-5/HPF) Ur Epithelial Cells (NONE-FEW) Urine Bacteria (NEGATIVE) 08/14/19 08/14/19 08/15/19 Range/Units 18:25 19:56 05:41 WBC 17.85 H (4.0-11.0) K/uL RBC 5.30 (4.50-5.90) M/uL Hgb 16.3 (13.0-17.0) g/dL Hct 46.6 (38.0-50.0) % MCV 87.9 (80.0-98.0) fL MCH 30.8 (27.0-32.0) pg MCHC 35.0 (31.0-37.0) g/dL RDW Std Deviation 44.6 (28.0-62.0) fl RDW Coeff of Violet 14 (11.0-15.0) % Plt Count 227 (150-400) K/uL MPV 10.60 (7.40-12.00) fL Neut % (Auto) 90.9 H (48.0-80.0) % Lymph % (Auto) 6.2 L (16.0-40.0) % [place] % (Auto) 2.6 (0.0-15.0) % Eos % (Auto) 0.1 (0.0-7.0) % Baso % (Auto) 0.2 (0.0-1.5) % Neut # (Auto) 16.2 H (1.4-5.7) K/uL Lymph # (Auto) 1.1 (0.6-2.4) K/uL [place] # (Auto) 0.5 (0.0-0.8) K/uL Eos # (Auto) 0.0 (0.0-0.7) K/uL Baso # (Auto) 0.0 (0.0-0.1) K/uL Nucleated RBC % 0.0 /100WBC Nucleated RBCs # 0 K/uL D-Dimer, Quantitative (0.0-0.50) mg/L FEU Lactate 2.0 (0.20-2.00) mmol/L Sodium (136-148) mmol/L Potassium (3.5-5.1) mmol/L Chloride (98-107) mmol/L Carbon Dioxide (21.0-32.0) mmol/L BUN (7.0-18.0) mg/dL Creatinine (0.8-1.3) mg/dL Est Cr Clr Drug Dosing mL/min Estimated GFR (MDRD) ml/min Glucose (74-106) mg/dL Calcium (8.5-10.1) mg/dL Phosphorus (2.6-4.7) mg/dL Magnesium (1.8-2.4) mg/dL Total Bilirubin (0.2-1.0) mg/dL AST (15-37) IU/L ALT (14-63) IU/L Alkaline Phosphatase (46-116) U/L Troponin I < 0.050 (0.000-0.056) ng/mL Total Protein (6.4-8.2) g/dL Albumin (3.4-5.0) g/dL Globulin (2.6-4.0) g/dL Albumin/Globulin Ratio (0.9-1.6) Urine Color Urine Appearance Urine pH (5.0-8.0) Ur Specific [place] (1.001-1.035) Urine Protein (NEGATIVE) mg/dL Urine Glucose (UA) (NEGATIVE) mg/dL Urine Ketones (NEGATIVE) mg/dL Urine Occult Blood (NEGATIVE) Urine Nitrite (NEGATIVE) Urine Bilirubin (NEGATIVE) Urine Urobilinogen (<2.0) EU/dL Ur Leukocyte Esterase (NEGATIVE) Urine RBC (0-2/HPF) Urine WBC (0-5/HPF) Ur Epithelial Cells (NONE-FEW) Urine Bacteria (NEGATIVE) 08/15/19 08/15/19 Range/Units 05:41 05:50 WBC (4.0-11.0) K/uL RBC (4.50-5.90) M/uL Hgb (13.0-17.0) g/dL Hct (38.0-50.0) % MCV (80.0-98.0) fL MCH (27.0-32.0) pg MCHC (31.0-37.0) g/dL RDW Std Deviation (28.0-62.0) fl RDW Coeff of Violet (11.0-15.0) % Plt Count (150-400) K/uL MPV (7.40-12.00) fL Neut % (Auto) (48.0-80.0) % Lymph % (Auto) (16.0-40.0) % [place] % (Auto) (0.0-15.0) % Eos % (Auto) (0.0-7.0) % Baso % (Auto) (0.0-1.5) % Neut # (Auto) (1.4-5.7) K/uL Lymph # (Auto) (0.6-2.4) K/uL [place] # (Auto) (0.0-0.8) K/uL Eos # (Auto) (0.0-0.7) K/uL Baso # (Auto) (0.0-0.1) K/uL Nucleated RBC % /100WBC Nucleated RBCs # K/uL D-Dimer, Quantitative (0.0-0.50) mg/L FEU Lactate (0.20-2.00) mmol/L Sodium 139 (136-148) mmol/L Potassium 4.3 (3.5-5.1) mmol/L Chloride 104 (98-107) mmol/L Carbon Dioxide 23.4 (21.0-32.0) mmol/L BUN 29 H (7.0-18.0) mg/dL Creatinine 0.9 (0.8-1.3) mg/dL Est Cr Clr Drug Dosing 93.85 mL/min Estimated GFR (MDRD) > 60.0 ml/min Glucose 136 H (74-106) mg/dL Calcium 8.7 (8.5-10.1) mg/dL Phosphorus 4.2 (2.6-4.7) mg/dL Magnesium 2.0 (1.8-2.4) mg/dL Total Bilirubin (0.2-1.0) mg/dL AST (15-37) IU/L ALT (14-63) IU/L Alkaline Phosphatase (46-116) U/L Troponin I (0.000-0.056) ng/mL Total Protein (6.4-8.2) g/dL Albumin (3.4-5.0) g/dL Globulin (2.6-4.0) g/dL Albumin/Globulin Ratio (0.9-1.6) Urine Color YELLOW Urine Appearance CLEAR Urine pH 5.5 (5.0-8.0) Ur Specific [place] >= 1.030 (1.001-1.035) Urine Protein NEGATIVE (NEGATIVE) mg/dL Urine Glucose (UA) NEGATIVE (NEGATIVE) mg/dL Urine Ketones NEGATIVE (NEGATIVE) mg/dL Urine Occult Blood NEGATIVE (NEGATIVE) Urine Nitrite NEGATIVE (NEGATIVE) Urine Bilirubin NEGATIVE (NEGATIVE) Urine Urobilinogen 0.2 (<2.0) EU/dL Ur Leukocyte Esterase NEGATIVE (NEGATIVE) Urine RBC 0-1 (0-2/HPF) Urine WBC 0-1 (0-5/HPF) Ur Epithelial Cells RARE (NONE-FEW) Urine Bacteria RARE (NEGATIVE) Med Orders - Current: Current Medications Acetaminophen (Tylenol) 650 mg PO Q4H PRN PRN Reason: analgesia/fever Albuterol/Ipratropium (Duoneb 3.0-0.5 Mg/3 Ml) 3 ml NEB Q4HRRT PRN PRN Reason: Shortness of Breath Last Admin: 08/15/19 10:31 Dose: 3 ml Amlodipine Besylate (Norvasc) 10 mg PO DAILY [facility] Aspirin (Ecotrin) 325 mg PO DAILY [facility] Last Admin: 08/15/19 09:39 Dose: 325 mg Aspirin (Halfprin) 81 mg PO DAILY [facility] Escitalopram Oxalate (Lexapro) 20 mg PO DAILY [facility] Guaifenesin/Dextromethorphan (Robitussin Dm) 10 ml PO Q6H PRN PRN Reason: Cough Levofloxacin/Dextrose 750 mg/ (Premix) 150 mls @ 100 mls/hr IV Q24H [facility] Last Admin: 08/15/19 10:13 Dose: 100 mls/hr Levothyroxine Sodium (Levothyroxine) 25 mcg PO ACBREAKFAST [facility] Last Admin: 08/15/19 08:04 Dose: 25 mcg Levothyroxine Sodium (Synthroid) 50 mcg PO ACBREAKFAST [facility] Losartan Potassium (Cozaar) 50 mg PO DAILY [facility] Methylprednisolone Sodium Succinate (Solu-Medrol) 40 mg IVPUSH Q8H [facility] Last Admin: 08/15/19 10:14 Dose: 40 mg Omeprazole (Omeprazole) 20 mg PO ACBREAKFAST [facility] Last Admin: 08/15/19 08:04 Dose: 20 mg Sodium Chloride (Saline Flush) 10 ml FLUSH ASDIRECTED PRN PRN Reason: Keep Vein Open Sodium Chloride (Saline Flush) 2.5 ml FLUSH ASDIRECTED PRN PRN Reason: Keep Vein Open Discontinued Medications Albuterol/Ipratropium (Duoneb 3.0-0.5 Mg/3 Ml) 3 ml NEB ONETIME ONE Stop: 08/14/19 17:39 Last Admin: 08/14/19 17:49 Dose: 3 ml Albuterol/Ipratropium (Duoneb 3.0-0.5 Mg/3 Ml) 3 ml NEB Q4HRRT PRN PRN Reason: Shortness of Breath Albuterol/Ipratropium (Duoneb 3.0-0.5 Mg/3 Ml) 3 ml NEB Q4HRRT [facility] Last Admin: 08/14/19 21:05 Dose: 3 ml Levofloxacin/Dextrose 750 mg/ (Premix) 150 mls @ 100 mls/hr IV ONETIME ONE Stop: 08/14/19 20:30 Last Admin: 08/14/19 20:03 Dose: 100 mls/hr Sodium Chloride (Normal Saline) 1,000 mls @ 100 mls/hr IV ASDIRECTED [facility] Stop: 08/15/19 05:00 Last Admin: 08/14/19 21:58 Dose: 100 mls/hr Influenza Virus Vaccine (Fluzone Quad [id number] Syringe) 60 mcg IM .ONCE ONE Stop: 08/15/19 09:01 Methylprednisolone Sodium Succinate (Solu-Medrol) 125 mg IVPUSH ONETIME ONE Stop: 08/14/19 17:39 Last Admin: 08/14/19 17:53 Dose: 125 mg
[2019-08-15 13:53] VITALS: PULSE 89
[2019-08-15 18:09] VITALS: BP 141/80
== END 2019-08-15 16:18 | disposition home or self-care (01) ==
LOC: MW.ED 17:16 → MW.MS 19:58
PROVIDERS: ADMIT Student in an Organized Health Care Education/Training Program; ATTEND Student in an Organized Health Care Education/Training Program
DX: R09.02 Hypoxemia (principal); J40 Bronchitis, not specified as acute or chronic; D72.829 Elevated white blood cell count, unspecified; I10 Essential (primary) hypertension; K21.9 Gastro-esophageal reflux disease without esophagitis; E66.9 Obesity, unspecified; Z91.048 Other nonmedicinal substance allergy status; Z79.899 Other long term (current) drug therapy; Z68.39 Body mass index [BMI] 39.0-39.9, adult
CPT/HCPCS: 36415; 71046; 71250; 80048; 80053; 81001; 83605; 83735; 84100; 84484; 85025; 85379; 87040; 94640; A9270; J1956; J2920; J2930; J7030; 99283; J7620-GY

== ENCOUNTER 2020-11-02 18:14 | Emergency (ER) | payer BC ==
[2020-11-02] MEDS ORDERED: Sodium Chloride 0.9% 10 ML Syringe FLUSH PRN (18:21)
[2020-11-02] MEDS ORDERED: Sodium Chloride 0.9% 2.5 ML Syringe FLUSH PRN (18:21)
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
[2020-11-02] MEDS ORDERED: Iopamidol 755 MG/ML 500 ML Multipack Bottle IVPUSH ONE (19:00)
[2020-11-02 19:05] LABS: BLOOD UREA NITROGEN,BUN 21 mg/dL (7.0-18.0); CARBON DIOXIDE,CO2 23.1 mmol/L (21.0-32.0); CHLORIDE,CL 102 mmol/L (98-107); GLUCOSE RANDOM 116 mg/dL (74-106); POTASSIUM,K 3.7 mmol/L (3.5-5.1); SODIUM,NA 139 mmol/L (136-148)
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
[2020-11-02 19:54] VITALS: BP 145/72; PULSE 73
== END 2020-11-02 19:55 | disposition home or self-care (01) ==
LOC: MW.ED 18:14
DX: S20.311A Abrasion of right front wall of thorax, initial encounter (principal); I10 Essential (primary) hypertension; R10.9 Unspecified abdominal pain; K21.9 Gastro-esophageal reflux disease without esophagitis; E66.9 Obesity, unspecified; Z68.37 Body mass index [BMI] 37.0-37.9, adult; Z91.048 Other nonmedicinal substance allergy status; Z79.82 Long term (current) use of aspirin; Z79.899 Other long term (current) drug therapy; Y04.0XXA Assault by unarmed brawl or fight, initial encounter
CPT/HCPCS: 36415; 70450; 71045; 74177; 80053; 85025; 99284; Q9967

== ENCOUNTER 2021-03-04 07:42 | Emergency (ER) | payer BC ==
--- NOTE | 2021-03-04 10:00 | EDM.PDOC ---
ED HPI GENERAL MEDICAL PROBLEM - General Chief Complaint: Laceration Stated Complaint: CUT TO LEFT THUMB Time Seen by Provider: 03/04/21 08:09 Source of Information: Reports: Patient - History of Present Illness INITIAL COMMENTS - FREE TEXT/NARRATIVE: 50-year-old male presenting with left thumb injury. Apparently he was cutting with a knife yesterday when it slipped and cut the finger pad of his left thumb. Bled yesterday but he was able to put a dressing and stop the bleeding. However this morning when he removed the dressing it started bleeding again and so he came in today. It was a clean unused knife. Wound appears clean. Past medical history: Neurofibromatosis, hypertension Past surgical history: Right partial leg amputation, other surgeries for neurofibromatosis Social: Never smoker Onset Date: 03/03/21 Onset Time: 20:00 - Related Data Allergies Allergy/AdvReac Type Severity Reaction Status Date / Time nickel Allergy Severe Swelling Verified 03/04/21 08:08 metal Allergy Severe Other Uncoded 03/04/21 08:08 Home Meds: Home Meds Lansoprazole [Prevacid] 1 tab PO DAILY 12/21/14 [History] Multivitamin [Multi-Vitamin Daily] 1 tab PO DAILY 12/21/14 [History] amLODIPine [Norvasc] 10 mg PO DAILY 10/13/15 [History] Hydrochlorothiazide 25 mg PO DAILY 07/24/16 [History] Losartan [Cozaar] 50 mg PO DAILY 07/24/16 [History] methylPREDNISolone [Medrol Dose Pack] 1 dose PO DAILY 6 Days #1 dospk 08/10/19 [Rx] Aspirin [Halfprin] 81 mg PO DAILY 08/14/19 [History] Escitalopram [Lexapro] 20 mg PO DAILY 08/14/19 [History] Levothyroxine [Synthroid] 50 mcg PO ASDIRECTED 08/14/19 [History] Albuterol/Ipratropium [Combivent Respimat] 4 gm IH Q4H 14 Days #1 aer.w.adap 08/15/19 [Rx] levoFLOXacin [Levaquin] 750 mg PO DAILY 5 Days #5 tablet 08/15/19 [Rx] Ibuprofen 600 mg PO Q6HR PRN #30 tablet 11/02/20 [Rx] traMADol [Ultram] 50 mg PO Q6H PRN #12 tab 11/02/20 [Rx] cephALEXin [Keflex] 500 mg PO Q6HR 7 Days #28 cap 03/04/21 [Rx] Past Medical History HEENT History: Reports: Hard of Hearing Cardiovascular History: Reports: Hypertension Respiratory History: Reports: None, Sleep Apnea Gastrointestinal History: Reports: GERD Other Gastrointestinal History: colitis Genitourinary History: Reports: Renal Calculus Musculoskeletal History: Reports: Amputation Other Musculoskeletal History: degenerative disc disease Neurological History: Reports: Other (See Below) Other Neuro History: neurofibromatosis Psychiatric History: Reports: Anxiety Endocrine/Metabolic History: Reports: Obesity/BMI 30+ Hematologic History: Reports: Blood Transfusion(s) Dermatologic History: Reports: Psoriasis - Infectious Disease History Infectious Disease History: Reports: Chicken Pox - Past Surgical History HEENT Surgical History: Reports: None Cardiovascular Surgical History: Reports: None GI Surgical History: Reports: Appendectomy Male Surgical History: Reports: Kidney Stone Extraction Endocrine Surgical History: Reports: None Musculoskeletal Surgical History: Reports: ORIF, Other (See Below) Other Musculoskeletal Surgeries/Procedures:: prosthetic right lower leg. right wrist fusion Dermatological Surgical History: Reports: None Social & Family History - Family History Family Medical History: No Pertinent Family History HEENT: Reports: None - Caffeine Use Caffeine Use: Reports: None - Living Situation & Occupation Living situation: Reports: Occupation: Employed ED ROS GENERAL - Review of Systems Review Of Systems: See Below Constitutional: Denies: Fever Cardiovascular: Denies: Chest Pain Musculoskeletal: Reports: Hand Pain Skin: Reports: Wound ED EXAM, SKIN/RASH Exam: See Below General Appearance: Alert, WD/WN, No Apparent Distress Head: Atraumatic, Normocephalic Neck: Normal Inspection Respiratory/Chest: No Respiratory Distress Cardiovascular: Regular Rate, Rhythm Extremities: Other (Left thumb with open exposed wound actively bleeding of the thumb fingertip pad. No exposed bone. Distal sensation intact.) Skin: Wound/Incision (Laceration over the left thumb as above. Deep wound without exposed bone. Missing subcutaneous tissue) Location, Skin: Palms (Left thumb fingertip pad) Course - Vital Signs Last Recorded V/S: Last Vital Signs Temp 97.1 F 03/04/21 10:26 Pulse 77 03/04/21 10:26 Resp 18 03/04/21 10:26 BP 147/82 H 03/04/21 10:26 Pulse Ox 94 L 03/04/21 10:26 - Re-Assessments/Exams Free Text/Narrative Re-Assessment/Exam: 03/04/21 09:01; Consult to DR Diez, will come see patient 03/04/21 09:17 Dr Diez at bedside, requests consult to Hand surgery in [place] for followup. 03/04/21 09:55: Case discussed with DR Mercedes at [facility], agree with plan for outpatient followup, they will see him in office, Agrees with loose non- adherent dressing, and recommends Keflex. Stable for d.c. This was communicated with patient as well. He is in agreement with this plan. Departure - Departure Time of Disposition: 10:00 Disposition: Home, Self-Care 01 Condition: Good Clinical Impression: Fingertip avulsion - Discharge Information Prescriptions: cephALEXin [Keflex] 500 mg PO Q6HR 7 Days #28 cap Instructions: Traumatic Finger Amputation, Laceration Care, Adult, Easy-to- Read, Deep Skin Avulsion Referrals: Amish Padilla MD [Primary Care Provider] - Lisandra Mercedes [Ordering Only Provider] - 2 Days (call for appointment as soon as possible) Forms: ED Department Discharge Sepsis Event Note (ED) - Evaluation Sepsis Screening Result: No Definite Risk
[2021-03-04 10:26] VITALS: BP 147/82; PULSE 77
== END 2021-03-04 10:28 | disposition home or self-care (01) ==
LOC: MW.ED 07:42
DX: S61.012A Laceration without foreign body of left thumb without damage to nail, initial encounter (principal); I10 Essential (primary) hypertension; K21.9 Gastro-esophageal reflux disease without esophagitis; E66.9 Obesity, unspecified; Z68.37 Body mass index [BMI] 37.0-37.9, adult; Z91.048 Other nonmedicinal substance allergy status; Z79.82 Long term (current) use of aspirin; Z79.899 Other long term (current) drug therapy; W26.0XXA Contact with knife, initial encounter
CPT/HCPCS: 99283

== ENCOUNTER 2021-09-24 10:54 | Emergency (ER) | payer BC ==
[2021-09-24 13:13] LABS: BLOOD UREA NITROGEN,BUN 18 mg/dL (7.0-18.0); CARBON DIOXIDE,CO2 26.1 mmol/L (21.0-32.0); CHLORIDE,CL 100 mmol/L (98-107); GLUCOSE RANDOM 115 mg/dL (74-106); POTASSIUM,K 3.6 mmol/L (3.5-5.1); SODIUM,NA 140 mmol/L (136-148)
[2021-09-24 13:40] VITALS: BP 139/71; PULSE 87
== END 2021-09-24 13:40 | disposition home or self-care (01) ==
LOC: MW.ED 10:54
DX: J45.909 Unspecified asthma, uncomplicated (principal); I11.0 Hypertensive heart disease with heart failure; I50.9 Heart failure, unspecified; K21.9 Gastro-esophageal reflux disease without esophagitis; E66.9 Obesity, unspecified; Z68.39 Body mass index [BMI] 39.0-39.9, adult; Z88.8 Allergy status to other drugs, medicaments and biological substances; Z79.899 Other long term (current) drug therapy; Z20.822 Contact with and (suspected) exposure to COVID-19
CPT/HCPCS: 36415; 71045; 71045-26; 80053; 83880; 84484; 85025; 93005; 93010; 99283; 99285-25; U0002

== ENCOUNTER 2021-12-15 08:03 | Emergency (ER) | payer BC ==
[2021-12-15] MEDS ORDERED: Lactated Ringers 1,000 ML IV STA (08:39)
[2021-12-15] MEDS ORDERED: Morphine 4 MG/ML VIAL IVPUSH ONE (08:39)
[2021-12-15 09:13] LABS: BLOOD UREA NITROGEN,BUN 16 mg/dL (7.0-18.0); CARBON DIOXIDE,CO2 24.7 mmol/L (21.0-32.0); CHLORIDE,CL 100 mmol/L (98-107); GLUCOSE RANDOM 128 mg/dL (74-106); LIPASE 120 U/L (73-393); POTASSIUM,K 3.5 mmol/L (3.5-5.1); SODIUM,NA 138 mmol/L (136-148)
[2021-12-15] MEDS ORDERED: Iopamidol 755 MG/ML 500 ML Multipack Bottle IVPUSH STA (10:30)
[2021-12-15] MEDS ORDERED: metroNIDAZOLE 250 MG Tab PO STA (11:44)
[2021-12-15] MEDS ORDERED: Ciprofloxacin 500 MG Tab PO STA (11:44)
[2021-12-15] MEDS ORDERED: Azithromycin 250 MG Tab PO STA (11:45)
[2021-12-15 12:30] VITALS: BP 123/82; PULSE 82
== END 2021-12-15 12:16 | disposition home or self-care (01) ==
LOC: MW.ED 08:03
DX: K52.9 Noninfective gastroenteritis and colitis, unspecified (principal); J18.9 Pneumonia, unspecified organism; I11.0 Hypertensive heart disease with heart failure; I50.9 Heart failure, unspecified; J45.909 Unspecified asthma, uncomplicated; E66.9 Obesity, unspecified; Z68.39 Body mass index [BMI] 39.0-39.9, adult; Z90.49 Acquired absence of other specified parts of digestive tract; Z79.899 Other long term (current) drug therapy; Z79.82 Long term (current) use of aspirin; Z91.048 Other nonmedicinal substance allergy status
CPT/HCPCS: 36415; 71045; 74178; 80053; 81003; 83605; 83690; 83735; 85025; 85610; 93005; 96374; 99284; A9270; J2270; J7120; Q9967

== ENCOUNTER 2022-03-28 14:35 | Emergency (ER) | payer BC ==
[2022-03-28 17:21] VITALS: BP 132/65; PULSE 86
== END 2022-03-28 17:20 | disposition home or self-care (01) ==
LOC: MW.ED 14:35
DX: M96.89 Other intraoperative and postprocedural complications and disorders of the musculoskeletal system (principal); S80.01XA Contusion of right knee, initial encounter; I11.0 Hypertensive heart disease with heart failure; I50.9 Heart failure, unspecified; K21.9 Gastro-esophageal reflux disease without esophagitis; E66.9 Obesity, unspecified; Z91.09 Other allergy status, other than to drugs and biological substances; Z68.39 Body mass index [BMI] 39.0-39.9, adult
CPT/HCPCS: 73560-26-RT; 73560-RT; 99283

== ENCOUNTER 2022-11-09 08:20 | Emergency (ER) | payer BC ==
[2022-11-09] MEDS ORDERED: Lactated Ringers 1,000 ML IV SCH (08:30)
[2022-11-09] MEDS ORDERED: Ketorolac 30 MG/ML SDV IVPUSH ONE (08:45)
[2022-11-09] MEDS ORDERED: Ondansetron 4 MG/2 ML SDV IVPUSH ONE (08:45)
[2022-11-09 09:27] LABS: CARBON DIOXIDE,CO2 25.5 mmol/L (21.0-32.0); POTASSIUM,K 3.5 mmol/L (3.5-5.1)
[2022-11-09] MEDS ORDERED: HYDROmorphone 1 MG/ML Syringe IVPUSH ONE (09:59)
[2022-11-09] MEDS ORDERED: Iopamidol 755 MG/ML 500 ML Multipack Bottle IVPUSH STA (10:18)
[2022-11-09 13:00] VITALS: BP 135/87; PULSE 78
== END 2022-11-09 12:59 | disposition home or self-care (01) ==
LOC: MW.ED 08:20
DX: K52.9 Noninfective gastroenteritis and colitis, unspecified (principal); I11.0 Hypertensive heart disease with heart failure; I50.9 Heart failure, unspecified; J45.909 Unspecified asthma, uncomplicated; K21.9 Gastro-esophageal reflux disease without esophagitis; E66.9 Obesity, unspecified; Z68.41 Body mass index [BMI] 40.0-44.9, adult; Z91.048 Other nonmedicinal substance allergy status; Z79.82 Long term (current) use of aspirin; Z79.899 Other long term (current) drug therapy
CPT/HCPCS: 36415; 74177; 80053; 81001; 83690; 85027; 96361; 96374; 96375; 99284; J1170; J1885; J2405; J7120; Q9967

== ENCOUNTER 2023-12-19 15:52 | Emergency (ER) | payer BC ==
[2023-12-19] MEDS: Acetaminophen 500 MG Tab PO ONE (17:02)
[2023-12-19] MEDS: Diphtheria,Pertussis(Acell),Tetanus Vaccine 0.5 ML Syringe IM ONE (21:03)
[2023-12-20 02:56] VITALS: BP 142/83; PULSE 75
== END 2023-12-19 21:20 | disposition home or self-care (01) ==
LOC: MW.ED 15:52
DX: S01.01XA Laceration without foreign body of scalp, initial encounter (principal); S09.90XA Unspecified injury of head, initial encounter; I11.0 Hypertensive heart disease with heart failure; I50.9 Heart failure, unspecified; K21.9 Gastro-esophageal reflux disease without esophagitis; Z90.49 Acquired absence of other specified parts of digestive tract; Z79.899 Other long term (current) drug therapy; Z79.82 Long term (current) use of aspirin; Z91.048 Other nonmedicinal substance allergy status; Z75.8 Other problems related to medical facilities and other health care; W17.89XA Other fall from one level to another, initial encounter; Z23 Encounter for immunization
CPT/HCPCS: 12001; 90471; 90715; 99283; A9270

== ENCOUNTER 2023-12-26 11:31 | Emergency (ER) | payer BC ==
[2023-12-26 14:32] VITALS: BP 143/87; PULSE 87
== END 2023-12-26 12:13 | disposition left against medical advice (07) ==
LOC: MW.ED 11:31
DX: Z48.02 Encounter for removal of sutures (principal)
CPT/HCPCS: 99281

== ENCOUNTER 2024-07-25 09:33 | Day surgery (SDC) | payer BC, OTHER ==
[~2024-07-25 09:33] MED LIST: Sodium Chloride 0.9% 10 ML Syringe FLUSH PRN; Sodium Chloride 0.9% 2.5 ML Syringe FLUSH PRN; Sodium Chloride 0.9% 20 ML SDV IV PRN
[2024-07-25] MEDS ORDERED: Albuterol/Ipratropium 3.0-0.5 MG/3 ML Neb Soln ONE (10:01)
[2024-07-25] MEDS: Lactated Ringers 1,000 ML IV SCH (10:01)
[2024-07-25] MEDS ORDERED: propofoL 500 MG/50 ML 50 ML ONE (10:31)
[2024-07-25] MEDS ORDERED: Lidocaine 2% 5 ML SDV ONE (10:31)
[2024-07-25 13:01] VITALS: BP 120/69; PULSE 71
== END 2024-07-25 12:34 | disposition home or self-care (01) ==
LOC: MW.SDS 09:33
PROVIDERS: ATTEND Surgery
DX: Z12.11 Encounter for screening for malignant neoplasm of colon (principal); R19.5 Other fecal abnormalities; D12.2 Benign neoplasm of ascending colon; D12.3 Benign neoplasm of transverse colon; D12.4 Benign neoplasm of descending colon; K63.5 Polyp of colon; I11.0 Hypertensive heart disease with heart failure; I50.9 Heart failure, unspecified; K21.9 Gastro-esophageal reflux disease without esophagitis; E66.9 Obesity, unspecified; Z68.41 Body mass index [BMI] 40.0-44.9, adult; Z79.82 Long term (current) use of aspirin; Z79.899 Other long term (current) drug therapy
CPT/HCPCS: 45380; 45385; J2704; J7120; 00811; J3490; J7620-GY

== ENCOUNTER 2024-10-20 16:40 | Emergency (ER) | payer BC ==
[2024-10-20] MEDS ORDERED: Sodium Chloride 0.9% 2.5 ML Syringe FLUSH PRN (17:23)
[2024-10-20] MEDS ORDERED: Sodium Chloride 0.9% 10 ML Syringe FLUSH PRN (17:23)
[2024-10-20] MEDS: Sodium Chloride 0.9% 1,000 ML IV ONE (17:41)
[2024-10-20] MEDS: Ketorolac 30 MG/ML SDV IVPUSH ONE (17:42)
[2024-10-20 17:57] LABS: BASOPHILS PERCENT AUTO 0.9 % (0.0-1.0); EOSINOPHILS ABSOLUTE AUTO 0.22 K/uL (0.00-0.45); EOSINOPHILS PERCENT AUTO 1.9 % (0.0-6.0); HEMOGLOBIN 16.3 g/dL (14.0-18.0); IMMATURE GRAN ABSOLUTE AUTO 0.08 K/uL (0.00-0.05); IMMATURE GRAN PERCENT AUTO 0.7 % (0.0-0.4); LYMPHOCYTES ABSOLUTE AUTO 1.31 K/uL (1.00-4.80); LYMPHOCYTES PERCENT AUTO 11.2 % (24.0-44.0); MEAN CORPUSCULAR HEMOGLOBIN 29.7 pg (28.0-32.0); MEAN CORPUSCULAR HGB CONC 35.4 g/dL (32.0-36.0); MEAN CORPUSCULAR VOLUME 83.9 fL (83.0-99.0); MONOCYTES ABSOLUTE AUTO 1.16 K/uL (0.00-0.80); MONOCYTES PERCENT AUTO 9.9 % (0.0-8.0); NEUTROPHILS ABSOLUTE AUTO 8.85 K/uL (1.80-7.70); NEUTROPHILS PERCENT AUTO 75.4 % (41.0-71.0); PLATELET COUNT,PLT 188 K/uL (150-400); RED BLOOD CELL COUNT 5.48 M/uL (4.52-5.90); WHITE BLOOD CELL COUNT,WBC 11.72 K/uL (3.9-11.3)
[2024-10-20 17:58] LABS: APPEARANCE,URINE CLEAR; BILIRUBIN,URINE NEGATIVE (NEGATIVE); COLOR,URINE YELLOW; GLUCOSE,URINE NEGATIVE (NEGATIVE); KETONES,URINE TRACE mg/dL (NEGATIVE); LEUKOCYTE ESTERASE,URINE NEGATIVE (NEGATIVE); NITRITE,URINE NEGATIVE (NEGATIVE); OCCULT BLOOD,URINE NEGATIVE (NEGATIVE); PH,URINE 5.5 (5.0-8.0); PROTEIN,URINE NEGATIVE (NEGATIVE); UROBILINOGEN,URINE 0.2 EU/dL (<2.0)
[2024-10-20 18:31] LABS: A/G RATIO 1.2 (0.9-1.6); ALBUMIN 3.9 g/dL (3.4-5.0); BILIRUBIN TOTAL 0.6 mg/dL (0.2-1.0); CARBON DIOXIDE,CO2 25.6 mmol/L (21.0-32.0); EST CRCL DRUG DOSING (CG) 79.87 mL/min; POTASSIUM,K 3.6 mmol/L (3.5-5.1); PROTEIN TOTAL,TP 7.1 g/dL (6.4-8.2)
[2024-10-20] MEDS: Iopamidol 755 Mg/ML 100 ML Bottle IVPUSH STA (18:52)
[2024-10-20 20:14] VITALS: BP 127/91; PULSE 70
== END 2024-10-20 20:14 | disposition home or self-care (01) ==
LOC: MW.ED 16:40
DX: N20.0 Calculus of kidney (principal); K59.00 Constipation, unspecified; J18.9 Pneumonia, unspecified organism; I10 Essential (primary) hypertension; J45.909 Unspecified asthma, uncomplicated; K21.9 Gastro-esophageal reflux disease without esophagitis; E66.9 Obesity, unspecified; Z68.39 Body mass index [BMI] 39.0-39.9, adult; Z90.49 Acquired absence of other specified parts of digestive tract; Z91.048 Other nonmedicinal substance allergy status; Z79.51 Long term (current) use of inhaled steroids; Z79.82 Long term (current) use of aspirin; Z79.890 Hormone replacement therapy; Z79.899 Other long term (current) drug therapy; Z75.8 Other problems related to medical facilities and other health care
CPT/HCPCS: 36415; 74177; 80053; 81003; 83690; 85025; 96361; 96374; 99284; J1885; J7030; Q9967; 99283